=== PATIENT | male | born 1975 | race Caucasian/White ===

== ENCOUNTER 2017-12-28 19:40 | Observation (INO) | payer OTHER, SELFPAY ==
[2017-12-28 19:40] VITALS: BP 149/55; PULSE 105; RESP 16; TEMP 38.2; O2SAT 100; BMI 39.0
--- NOTE | 2017-12-28 19:58 | CT_ITS ---
STUDY: CT ABDOMEN AND PELVIS WITH CONTRAST REASON FOR EXAM: Male, 42 years old. Right lower quadrant pain. RADIATION DOSAGE (If Supplied By Facility): CTDIvol = ( 17.03 ) mGy, DLP = ( 1419.88 ) mGycm TECHNIQUE: Transaxial images were obtained from the dome of the diaphragm to the symphysis pubis without oral contrast. 100 ml of Isovue 300 contrast was administered. Sagittal and coronal images were reconstructed. Individualized dose optimization techniques were used for this CT. COMPARISON: None. FINDINGS: There is minimal atelectasis within the lower lobes. The visualized portions of the heart are within normal limits. Normal liver. Normal gallbladder and extrahepatic biliary system. Normal spleen. Normal pancreas. Normal bilateral adrenal glands. Normal right kidney. Normal left kidney. Normal visualized stomach. Normal small intestine. Normal colon. There is a tubular, thick-walled appendix (>7mm), consistent with acute appendicitis. There are scattered peripheral calcifications of the abdominal aorta consistent with atherosclerosis. Normal inferior vena cava. Normal retroperitoneum. Normal urinary bladder. Normal abdominal wall. Normal osseous structures. CT/Abdomen/Pelvis W IV Cont ONLY IMPRESSION: Acute appendicitis. Electronically Signed: Poornima Smith MD at 20:59 EDT Tel , Service support ,
[2017-12-28] MEDS: Ketorolac 30 MG/ML Syringe IV (20:01)
[2017-12-28] MEDS: 0.9% Normal Saline 1,000 ML 1000 ML IV (20:01)
[2017-12-28] MEDS: Ondansetron 4 MG/2 ML Vial IV (20:03)
--- NOTE | 2017-12-28 20:05 | ED.DCSUM_ITS ---
- ER Visit Summary Date of Service: 12/28/17 Chief Complaint: Right lower quadrant abdominal pain History of Present Illness: The patient is a 42 M no prior abdominal surgery. Patient states since around 7 AM this morning he has had right lower quadrant abdominal pain and is progressively gotten worse. No vomiting. No diarrhea. No dysuria. No hematuria. No melena. He did develop worse pain and a fever tonight and left the football game to come to the ER to be evaluated. He denies any trauma. No prior history. Physical Examination: Well-appearing middle-age male. Vital signs stable he does have a low-grade temperature 100.2. He does not look septic or toxic. He is currently in no distress. H EENT exam unremarkable. Neck nontender. Lungs good auscultation bilaterally. Heart regular rhythm rate about 100 no murmur. Abdomen soft. Nondistended. Normal bowel sounds. The right upper left upper and left lower quadrants are unremarkable. He has obvious McBurney's point tenderness on the right. He does mildly guard. There is no rebound currently or rigidity. He also has a positive Rovsing sign with pushing on his left lower quadrant he has pain in the right. External exam is nontender. No masses or redness. Back there is no CVA tenderness. He is moving all 4 extremities. They are neurovascularly intact. He is awake and alert. Test Results: Count 13,000. Normal hemoglobin. Electrolytes unremarkable. Gap is 7. Creatinine 1.36. UA is pending. CT abdomen pelvis with IV contrast only read by the radiologist reviewed by me shows acute appendicitis. The appendix is enlarged and inflamed. Otherwise no acute abnormality. This is completely consistent with his history and exam. Emergency Department Course and Treatment: Patient's clinical exam is consistent with acute appendicitis. He will undergo a CAT scan of the abdomen and pelvis along with labs. He will receive IV Toradol and Zofran. Along with IV fluids. He may potentially have a morphine allergy from a prior surgery but at that time he received both the morphine and an antibiotic and more than likely it was a reaction to the antibiotic. Treatment Plan: I have already spoken with the surgeon material control analyst Dr. Gareth Guerra and he is coming to evaluate the patient for an acute appendectomy. He is calling in the surgical team. Patient will be started on IV Zosyn. Disposition: To the operating room for an appendectomy Impression: Acute abdominal pain secondary to acute appendicitis This note was generated with [employer] dictation software. It may contain incorrect words, spelling, and punctuation that were not noted in review of the chart prior to signing ED Disposition - Plan for ED Patient: Chief Complaint: Abd Pain Referrals: Lewis Cardona MD [Primary Care Provider] -
[2017-12-28 20:27] LABS: Absolute Lymphocyte Count 1.32 X10^3/ul (0.83-4.51); Absolute Neutrophil Count 10.8 X10^3/uL (2.0-7.7); Basophil# 0.02 X10^3/uL; Basophil% 0.2 % (0-1); Eosinophil# 0.08 X10^3/uL; Eosinophils% 0.6 % (0-5); Hematocrit 40.9 % (40-54); Hemoglobin 14.6 g/dl (13.0-16.5); Lymphocyte # 1.32 X10^3/ul (4.0); Lymphocyte % 10.1 % (19-41); Mean Corp Hgb Conc 35.7 g/gl (32-36); Mean Corpuscular Hgb 33.3 pg (27.0-32.0); Mean Corpuscular Volume 93.2 fL (80-94); Mean Platelet Vol. 8.6 fl (6.2-12.0); Monocyte% 6.1 % (0-10); Neutrophil # 10.77 X10^3/uL (2.7-7.7); Neutrophil % 82.8 % (47-70); Platelet Count 241 K/mm3 (150-450); RBC Distribution Width CV 12.9 % (11.6-14.6); RBC Distribution Width SD 43.2 fl (35.1-43.9); Red Blood Count 4.39 M/mm3 (4.6-6.2)
[2017-12-28 20:31] LABS: Anion Gap 7 (5-15); BUN 17 mg/dL (7-18); BUN/Creat Ratio 12.5 RATIO (10-20); Chloride 100 mmol/L (98-107); Creatinine, Serum 1.36 mg/dL (0.70-1.30); EST Glomerular Filtration Rate 61 mL/min (>60); Est Glom Filt Rate - Afr Amer 74 mL/min (>60); Estimated Creatinine Clearance 76.13 ml/min; Glucose 154 mg/dL (74-106); POSITIVE COUNT NO; POSITIVE DIFFERENTIAL NO; POSITIVE MORPHOLOGY NO; Potassium 4.1 mmol/L (3.5-5.1); Sodium Level 133 mmol/L (136-145)
[2017-12-28 21:10] VITALS: BP 161/85; PULSE 90; RESP 17; O2SAT 96
[2017-12-28 21:10] LABS: Bacteria 0 SEEN /hpf (None Seen); Mucous, Urine 0 SEEN /hpf (<or=2+); Red Blood Cells-Urine 0 SEEN /hpf (0-5); Squamous Epithelial Cells - UA 0 SEEN /hpf (0-5); White Blood Cells 0 SEEN /hpf (0-5)
[2017-12-28 21:11] VITALS: BP 161/85; PULSE 91; RESP 17; O2SAT 95; BMI 39.0
[2017-12-28 21:20] LABS: Color, Urine Yellow (Yellow); Glucose, Dipstick Normal (Normal); Ketone-Dipstick Negative (Negative); Leukocyte Esterase-Dipstick Negative /ul (Negative); Nitrite-Dipstick Negative (Negative); Occult Blood-Urine Negative /ul (Negative); Protein-Dipstick Negative (Negative); Urine Bilirubin Dipstick Negative (Negative); Urine Clarity Clear (Clear); Urine Urobilinogen Normal (Normal)
--- NOTE | 2017-12-28 21:21 | HP.PCM_ITS ---
History of Present Illness Date of Admission: 12/28/17 The patient is a 42 year old M who woke up this morning with abdominal pain. Pain localized to right lower quadrant. The patient presented with blood in the sigmoid had persistent pain. He presented to [facility] emergency department. He was noted elevated white blood cell count of 13,000. CT scan of the head and pelvis was obtained which demonstrated early appendicitis. I was contacted. Past Medical History Past Medical History (Chronic Problems): Chronic Problems Obesity grade 1 (Chronic) Dyslipidemia (Chronic) Hypertension (Chronic) Allergies cefazolin sodium [From Ancef] Allergy (Intermediate, Verified 02/18/16 09:49) Hives morphine Allergy (Intermediate, Verified 02/18/16 09:49) Hives Home Medications: Ambulatory Orders Medication Instructions Recorded Albuterol Inhaler [Ventolin Hfa] 2 puff INHALATION Q4H PRN PRN 10/29/14 Lisinopril [Zestril] 20 mg PO QHS 10/29/14 Lorazepam [Ativan] 0.5 mg PO DAILY PRN PRN 10/29/14 Paroxetine HCl [Paxil] 30 mg PO QHS 10/29/14 Ibuprofen 400 mg PO PRN PRN 12/28/17 Smoking Status: Never smoker - *Family History Paternal History Items: No pertinent history Review of Systems Constitutional: Denies: Chills, Fever, Weight Change HEENT: Denies: Head Aches, Sinus Congestion, Sinus Drainage Cardiovascular: Denies: Chest Pain, Palpitations Respiratory: Denies: Cough, Shortness of breath at rest, Sputum production Gastrointestinal: Denies: Abdominal Pain, Nausea, Vomiting Genitourinary: Denies: Dysuria Musculoskeletal: Denies: Joint Pain, Joint Tenderness Skin: Denies: Rash, Wounds Neurological: Denies: Numbness, Tingling, Focal weakness Psychiatric: Denies: Anxiety, Depression, Homicidal Ideations, Suicidal Ideations Hematologic/ Lymphatic: Denies: Easy Bruising, Easy Bleeding VTE Information - Inpt Only VTE Present on Admission: No VTE Mechan Device Prophylaxis: SCD's VTE Pharm Prophylaxis ordered?: No - Physical Exam General: Alert, Oriented x3, Cooperative HEENT: Atraumatic, PERRLA, EOMI, Normocephalic Neck: Supple, No JVD, Negative Carotid Bruits Lungs: Clear to auscultation, Normal air movement Cardiovascular: Regular rate, No murmurs Abdomen: Bowel Sounds Present, Soft, Tender - RLQ pain Extremities: No edema, Capillary Refill Less than 3 Seconds Skin: No rashes, No breakdown Musculoskeletal: No Tenderness to Palpation of Joints or Extremities Neurological: Cranial nerves II-XII grossly intact Psych/Mental Status: Normal Affect, Appropriate Vital Signs Temp Pulse Resp BP Pulse Ox 100.8 F H 91 17 161/85 H 95 12/28/17 19:40 12/28/17 21:11 12/28/17 21:11 12/28/17 21:11 12/28/17 21:11 Oxygen Delivery Method Room Air Weight: 127.006 kg Body Mass Index (BMI) 39.0 Laboratory Tests Past 24 Hrs 12/28/17 12/28/17 12/28/17 19:48 19:48 21:05 WBC 13.0 H RBC 4.39 L Hgb 14.6 Hct 40.9 MCV 93.2 MCH 33.3 H MCHC 35.7 RDW 12.9 RDW Differential 43.2 Plt Count 241 MPV 8.6 Immature Gran % (Auto) 0.200 Neut % (Auto) 82.8 H Lymph % (Auto) 10.1 L [place] % (Auto) 6.1 Eos % (Auto) 0.6 Baso % (Auto) 0.2 Absolute Neuts (auto) 10.8 H Absolute Lymphs (auto) 1.32 Total Counted Not Reportable Sodium 133 L Potassium 4.1 Chloride 100 Carbon Dioxide 26.0 Anion Gap 7 BUN 17 Creatinine 1.36 H Estim Creat Clear Calc 76.13 Est GFR (MDRD) Af Amer 74 Est GFR (MDRD) Non-Af 61 BUN/Creatinine Ratio 12.5 Glucose 154 H Calcium 9.0 Urine Color Pending Urine Clarity Pending Urine pH Pending Ur Specific [place] Pending Urine Protein Pending Urine Glucose (UA) Pending Urine Ketones Pending Urine Occult Blood Pending Urine Nitrite Pending Urine Bilirubin Pending Urine Urobilinogen Pending Ur Leukocyte Esterase Pending Urine RBC Pending Urine WBC Pending Ur Squamous Epith Cells Pending Urine Bacteria Pending Urine Mucus Pending Assessment/Plan All Active Problems Intractable low back pain (Acute) right lower quadrant bowel pain. CT scan consistent with appendicitis. I plan to perform a laparoscopic appendectomy. The risks, benefits, possible complications, alternatives were discussed with the patient. The patient was taken to consents to the surgical procedure.
--- NOTE | 2017-12-28 22:15 | APP_PTH ---
PATIENT: ELLE VILLALPANDO LOC: MS3 U#:[id number] AGE/SX: 42/M ROOM: IL313 RE12/28/[address]: Dr. Javi Guerra MD : 1975 BED: 1 DIS: 12/29/2017 SPEC #: [id number] RECD: 12/31/17 09:40 STATUS: LISBETH REQ #: [id number] FORTINO: 12/28/17 22:[address]: Javi Guerra DEPT: SURGICAL PATHOLOGY RECD BY: Ayden Nunez ENTERED: 12/31/17 10:31 SP TYPE: APPENDIX OTHR DR: Dr. Robert Cardona MD Tissues: Appendix, NOS Procedures: Surgery Specimen Level III HEADER OPERATION: Laparoscopic appendectomy PRE-OP DIAGNOSIS: Acute appendicitis TISSUE SUBMITTED: Appendix MICROSCOPIC DIAGNOSIS Appendix: Acute appendicitis and periappendicitis. SJ:vinicio 01/01/18 MICROSCOPIC DESCRIPTION Slides are reviewed. GROSS DESCRIPTION Received is one container labeled with the patient's name and designated appendix. The specimen consists of a C-shaped appendix measuring 9.9 cm in length and up to 1 cm in average diameter. The attached periappendiceal adipose tissue measures up to 2 cm in width. No obvious perforation is identified. The lumen contains fecal material. No fecalith is identified. Superintendent General sections are submitted in one cassette. / SJ:rg 12/31/17 TC:2 [facility]: [id number]
[2017-12-28] MEDS: Bupivacaine 0.5% PF 10 ML VIAL (22:50)
--- NOTE | 2017-12-28 23:22 | PCM.OPRPT ---
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 Sign in was performed verifying patient, site, procedure, position, and DVT prophylaxis with SCDs. Patient received 4.5 g Zosyn for presumed appendicitis. Following induction of general anesthetic. The patient?s abdomen was prepped and draped in the usual fashion. Timeout was performed verifying patient, site, position. Local anesthetic was injected below the umbilicus. Incision made and dissection carried down to the umbilical root fascia. 2 stay sutures were placed. Incision made in the fascia, the peritoneum entered under direct visualization. A 10 mm Hogue trocar was inserted and secured with the stay sutures. Pneumoperitoneum to 15 mmHg was insufflated. 2 5mm ports were placed in the standard position. Visual inspection revealed nonperforated but pale olmedo looking appendix. The mesoappendix was transected with a harmonic scalpel. The base the mesoappendix and the base of the appendix transected with the intestinal load Endo RAJ stapler at the base of the cecum. The appendix was placed in an Endobag and removed through the umbilical port site. An 0 PDS [id number] suture was placed around the umbilical port site defect. Pneumoperitoneum was reestablished. The appendiceal area was checked for hemostasis. 5mm ports were removed under direct visualization with no signs of bleeding. Pneumoperitoneum was released. The Hogue trocar was removed. The umbilical fascial suture was secured area did skin was closed with interrupted 4-0 Monocryl subcuticular sutures. Steri-Strips and bandages were applied. The patient was brought to recovery room in stable condition. - Admit VTE Documentation VTE Present on Admission: No VTE Mechan Device Prophylaxis: SCD's VTE Pharm Prophylaxis ordered?: No
[2017-12-28 23:39] VITALS: BP 130/87; BP 161/85; PULSE 97; RESP 20; TEMP 37.9; O2SAT 92
[2017-12-28 23:47] VITALS: BP 137/89; BP 161/85; PULSE 95; RESP 20; O2SAT 93
[2017-12-29] VITALS (8 sets, daily range): BP systolic 109–161; BP diastolic 72–86; PULSE 79–95; RESP 16–24; TEMP 36.4–37.8; O2SAT 92–97; BMI 39.3
[2017-12-29] MEDS: Lactated Ringers 1,000 ML 100 ML IV ×2 (00:52→11:49)
[2017-12-29] MEDS: HYDROmorphone 1 MG/ML Syringe IV ×2 (00:52→03:53)
[2017-12-29] MEDS: Piperacil/Tazobactam 3.375 GM/50 ML ML IV ×2 (06:32→13:55)
[2017-12-29] MEDS: 0.9% NaCl IVPB Med Flush (250 mL) 15 ML IV (06:32)
[2017-12-29] MEDS: oxyCODONE 5 MG Tablet PO ×3 (06:32→16:43)
[2017-12-29 07:15] LABS: Absolute Lymphocyte Count 2.09 X10^3/ul (0.83-4.51); Basophil# 0.01 X10^3/uL; Basophil% 0.1 % (0-1); Eosinophil# 0.07 X10^3/uL; Eosinophils% 0.6 % (0-5); Hemoglobin 13.9 g/dl (13.0-16.5); Lymphocyte # 2.09 X10^3/ul (4.0); Lymphocyte % 18.7 % (19-41); Mean Corp Hgb Conc 33.9 g/gl (32-36); Mean Corpuscular Hgb 32.2 pg (27.0-32.0); Mean Corpuscular Volume 94.9 fL (80-94); Mean Platelet Vol. 8.5 fl (6.2-12.0); Monocyte# 0.97 X10^3/uL; Monocyte% 8.7 % (0-10); Neutrophil # 8.02 X10^3/uL (2.7-7.7); Neutrophil % 71.7 % (47-70); Platelet Count 211 K/mm3 (150-450); RBC Distribution Width CV 13.3 % (11.6-14.6); RBC Distribution Width SD 45.8 fl (35.1-43.9); Red Blood Count 4.32 M/mm3 (4.6-6.2); White Blood Count 11.2 K/mm3 (4.4-11.0)
[2017-12-29 07:24] LABS: POSITIVE COUNT NO; POSITIVE DIFFERENTIAL NO; POSITIVE MORPHOLOGY NO
[2017-12-29 07:39] LABS: Anion Gap 9 (5-15); BUN 16 mg/dL (7-18); BUN/Creat Ratio 12.4 RATIO (10-20); Calcium,Total 8.6 mg/dL (8.5-10.1); Chloride 103 mmol/L (98-107); Creatinine, Serum 1.29 mg/dL (0.70-1.30); EST Glomerular Filtration Rate 65 mL/min (>60); Est Glom Filt Rate - Afr Amer 79 mL/min (>60); Estimated Creatinine Clearance 80.26 ml/min; Glucose 99 mg/dL (74-106); Potassium 4.3 mmol/L (3.5-5.1); Sodium Level 139 mmol/L (136-145)
--- NOTE | 2017-12-29 08:54 | DCINST_ITS ---
Discharge Diet: Light diet - advance as tolerated Discharge Activity: May Not Drive - for 3-5 days or while taking narcotic pain meds. May shower in (days): 1 Suture Line Care: Avoid Pulling/Pushing, Avoid Pinching/Bending Additional Dressing/Incision Instructions:: Keep dressing clean and dry. Change or remove dressing in 2 days. Leave steri strips for 1 week. May protect with a gauze bandaid. Medications to take at Discharge Albuterol Inhaler [Ventolin Hfa] 2 puff INHALATION Q4H PRN PRN 10/29/14 Lisinopril [Zestril] 20 mg PO QHS 10/29/14 Lorazepam [Ativan] 0.5 mg PO DAILY PRN PRN 10/29/14 Paroxetine HCl [Paxil] 30 mg PO QHS 10/29/14 Ibuprofen 400 mg PO PRN PRN 12/28/17 Ibuprofen [Motrin] 400 mg PO Q4H PRN PRN tablet 12/29/17 Oxycodone [Oxyir] 5 mg PO Q4H PRN PRN 7 Days #16 tab 12/29/17 Allergies/Adverse Reactions: Allergies cefazolin sodium [From Ancef] Allergy (Intermediate, Verified 02/18/16 09:49) Hives morphine Allergy (Intermediate, Verified 02/18/16 09:49) Hives The following prescriptions were given: Oxycodone [Oxyir] 5 mg PO Q4H PRN PRN 7 Days #16 tab PRN Reason: Severe Pain (6-10/10) Primary Care Physician: Lewis Cardona MD [Primary Care Provider] - Test Results: Test results from this visit will be discussed in further detail at your follow- up appointment, if applicable. Please Follow Up With: Javi Guerra MD - [phone] When: Call to make a follow up appointment in 1 week.
[2017-12-29] MEDS: Ibuprofen 400 MG Tablet PO (09:02)
[2017-12-29] MEDS: BENZOCAINE/MENTHOL 1 LOZENGE MUCOUS MEM ×2 (09:25→12:02)
--- NOTE | 2017-12-29 10:35 | PCM.DC.SUM ---
Discharge Date and Diagnosis Date of Admission: 12/28/17 Date of Discharge: 12/29/17 - Primary Discharge Diagnosis appendicitis - Secondary Discharge Diagnosis Chronic Problems Obesity grade 1 (Chronic) Dyslipidemia (Chronic) Hypertension (Chronic) Hospital Course and Treatment Operations: appendectomy Summary of Care Provided: The patient is a 42 year old M with a one-day history of abdominal pain localized to right lower quadrant consistent with appendicitis. The patient was taken the operating suite, underwent laparoscopic appendectomy for nonperforated appendicitis. The patient was doing well on postoperative day one was able to be discharged home Discharge Diet: Light diet - advance as tolerated Discharge Activity: May Not Drive - for 3-5 days or while taking narcotic pain meds. May shower in (days): 1 Suture Line Care: Avoid Pulling/Pushing, Avoid Pinching/Bending Additional Dressing/Incision Instructions:: Keep dressing clean and dry. Change or remove dressing in 2 days. Leave steri strips for 1 week. May protect with a gauze bandaid. Home Medications: Medications to take at Discharge Albuterol Inhaler [Ventolin Hfa] 2 puff INHALATION Q4H PRN PRN 10/29/14 Lisinopril [Zestril] 20 mg PO QHS 10/29/14 Lorazepam [Ativan] 0.5 mg PO DAILY PRN PRN 10/29/14 Paroxetine HCl [Paxil] 30 mg PO QHS 10/29/14 Ibuprofen 400 mg PO PRN PRN 12/28/17 Ibuprofen [Motrin] 400 mg PO Q4H PRN PRN tablet 12/29/17 Oxycodone [Oxyir] 5 mg PO Q4H PRN PRN 7 Days #16 tab 12/29/17 Following Prescrptions Were Given to Patient: Oxycodone [Oxyir] 5 mg PO Q4H PRN PRN 7 Days #16 tab PRN Reason: Severe Pain (6-10/) Primary Care Physician: Lewis Cardona MD [Primary Care Provider] - Please Follow Up With: Javi Guerra MD - [phone] When: Call to make a follow up appointment in 1 week. Medical Necessity - Tobacco Use Smoking Status: Never smoker Meaningful Use Info Meaningful Use Diagnoses (Choose all that apply): None applicable
--- NOTE | 2017-12-29 11:51 | NURSING ---
Dr Markham paged for the second time to report bladder scan showed 703 and pt is uncomfortable.
== END 2017-12-29 17:44 | disposition home or self-care (01) ==
LOC: ED 20:47 → SDC 21:36 → MS3 21:39 → SDC 23:45
PROVIDERS: Admitting Provider Surgery; Emergency Provider Emergency Medicine; Family Provider Family Medicine; PCP Family Medicine; Visit Provider Surgery
PROC: 0DTJ4ZZ Resection of Appendix, Percutaneous Endoscopic Approach (ICD-10-PCS; CPT 44970; principal; 2017-12-28 22:15)
DX: K35.80 Unspecified acute appendicitis (principal); F41.9 Anxiety disorder, unspecified; Z79.899 Other long term (current) drug therapy; I10 Essential (primary) hypertension; E66.9 Obesity, unspecified; Z68.39 Body mass index [BMI] 39.0-39.9, adult; Z71.3 Dietary counseling and surveillance; E78.5 Hyperlipidemia, unspecified
CPT/HCPCS: 00840; 44970; 36415; 74177; 80048; 81001; 85025; 88304; 96361; 96365; 96366; 96375; 96376; 99218; 99283; J7030; J7050; J7120; Q9967; A4216; G0378; J2405

== ENCOUNTER → 2018-05-09 14:31 | Outpatient (CLI) | payer OTHER, SELFPAY ==
[2017-12-29 00:23] VITALS: BMI 39.3
== END ==
LOC: LABSPEC 14:33
PROVIDERS: Family Provider Family Medicine; PCP Family Medicine; Referring Provider Family Medicine; Visit Provider Family Medicine
DX: R35.0 Frequency of micturition (principal)
CPT/HCPCS: 87086; 87088

== ENCOUNTER → 2018-05-10 07:17 | Outpatient (CLI) | payer OTHER, SELFPAY ==
[2018-05-10 10:45] LABS: ALB/GLOB Ratio 1.3 RATIO (0.9-2.4); AST(SGOT) 22 U/L (15-37); Alanine Aminotransfer ALT/SGPT 47 U/L (16-61); Albumin, Serum 4.3 g/dL (3.2-5.0); Alkaline Phosphatase 79 U/L (45-117); Anion Gap 13 (5-15); BUN 19 mg/dL (7-18); BUN/Creat Ratio 17.4 RATIO (10-20); Chloride 103 mmol/L (98-107); Cholesterol 225 mg/dL (200); Creatinine, Serum 1.09 mg/dL (0.70-1.30); EST Glomerular Filtration Rate 79 mL/min (>60); Est Glom Filt Rate - Afr Amer 96 mL/min (>60); Globulin 3.4 g/dL (2.2-4.2); Glucose 83 mg/dL (74-106); High Density Lipoprotein 28 mg/dL; PSA,Total - Annual Screen 2.46 ng/mL (0.00-4.00); Potassium 4.1 mmol/L (3.5-5.1); Protein, Total 7.7 g/dL (6.4-8.2); Sodium Level 141 mmol/L (136-145); Thyroid Stim Hormone (TSH) 1.43 uIU/mL (0.358-3.74); Triglycerides 385 mg/dL; Very Low Density Lipoprotein 77 mg/dL (5-40)
== END ==
LOC: MTLAB 07:18
PROVIDERS: Family Provider Family Medicine; PCP Family Medicine; Referring Provider Family Medicine; Visit Provider Family Medicine
DX: I10 Essential (primary) hypertension (principal); R35.0 Frequency of micturition; E66.9 Obesity, unspecified
CPT/HCPCS: 36415; 80053; 80061; 82533; 84153; 84443; G0103

== ENCOUNTER → 2019-03-24 17:01 | Outpatient (CLI) | payer OTHER, SELFPAY ==
[2017-12-29 00:23] VITALS: BMI 39.3
[2019-03-24 18:13] LABS: Anion Gap 7 (5-15); BUN 17 mg/dL (7-18); BUN/Creat Ratio 12.8 RATIO (10-20); Calcium,Total 9.3 mg/dL (8.5-10.1); Chloride 108 mmol/L (98-107); Cholesterol 214 mg/dL (200); Creatinine, Serum 1.33 mg/dL (0.70-1.30); EST Glomerular Filtration Rate 63 mL/min (>60); Est Glom Filt Rate - Afr Amer 76 mL/min (>60); Glucose 85 mg/dL (74-106); High Density Lipoprotein 22 mg/dL; Potassium 3.8 mmol/L (3.5-5.1); Sodium Level 138 mmol/L (136-145); Triglycerides 540 mg/dL
== END ==
LOC: MFPLAB 17:02
PROVIDERS: Family Provider Family Medicine; PCP Family Medicine; Referring Provider Family Medicine; Visit Provider Family Medicine
DX: I10 Essential (primary) hypertension (principal)
CPT/HCPCS: 36415; 80048; 80061

== ENCOUNTER → 2020-05-28 07:36 | Outpatient (CLI) | payer OTHER, SELFPAY ==
[2020-05-28 10:55] LABS: ALB/GLOB Ratio 1.3 RATIO (0.9-2.4); AST(SGOT) 24 U/L (15-37); Alanine Aminotransfer ALT/SGPT 44 U/L (16-61); Albumin, Serum 4.1 g/dL (3.2-5.0); Alkaline Phosphatase 82 U/L (45-117); Anion Gap 10 (5-15); BUN 18 mg/dL (7-18); BUN/Creat Ratio 16.5 RATIO (10-20); Calcium,Total 9.1 mg/dL (8.5-10.1); Chloride 103 mmol/L (98-107); Cholesterol 193 mg/dL (200); Creatinine, Serum 1.09 mg/dL (0.70-1.30); EST Glomerular Filtration Rate 78 mL/min (>60); Est Glom Filt Rate - Afr Amer 95 mL/min (>60); Globulin 3.2 g/dL (2.2-4.2); Glucose 97 mg/dL (74-106); High Density Lipoprotein 28 mg/dL; Potassium 4.1 mmol/L (3.5-5.1); Protein, Total 7.3 g/dL (6.4-8.2); Sodium Level 137 mmol/L (136-145); Triglycerides 280 mg/dL; Very Low Density Lipoprotein 56 mg/dL (5-40)
== END ==
LOC: MTLAB 07:37
PROVIDERS: PCP Family Medicine; Referring Provider Family Medicine; Visit Provider Family Medicine
DX: I10 Essential (primary) hypertension (principal); E78.5 Hyperlipidemia, unspecified
CPT/HCPCS: 36415; 80053; 80061

== ENCOUNTER → 2021-02-18 07:03 | Outpatient (CLI) | payer OTHER, SELFPAY ==
[2021-02-18 10:40] LABS: ALB/GLOB Ratio 0.9 RATIO (0.9-2.4); AST(SGOT) 19 U/L (15-37); Alanine Aminotransfer ALT/SGPT 45 U/L (16-61); Albumin, Serum 3.6 g/dL (3.2-5.0); Alkaline Phosphatase 81 U/L (45-117); Anion Gap 5 (5-15); BUN 19 mg/dL (7-18); BUN/Creat Ratio 17.3 RATIO (10-20); Calcium,Total 9.1 mg/dL (8.5-10.1); Chloride 105 mmol/L (98-107); Cholesterol 195 mg/dL (200); EST Glomerular Filtration Rate 77 mL/min (>60); Est Glom Filt Rate - Afr Amer 93 mL/min (>60); Globulin 3.8 g/dL (2.2-4.2); Glucose 95 mg/dL (74-106); High Density Lipoprotein 28 mg/dL; Potassium 4.1 mmol/L (3.5-5.1); Protein, Total 7.4 g/dL (6.4-8.2); Sodium Level 137 mmol/L (136-145); Thyroid Stim Hormone (TSH) 1.58 uIU/mL (0.358-3.74); Triglycerides 288 mg/dL; Very Low Density Lipoprotein 58 mg/dL (5-40)
== END ==
LOC: MTLAB 07:04
PROVIDERS: PCP Family Medicine; Visit Provider Family Medicine
DX: I10 Essential (primary) hypertension (principal); E66.9 Obesity, unspecified
CPT/HCPCS: 36415; 80053; 80061; 84403; 84443

== ENCOUNTER → 2021-12-12 | Outpatient (CLI) | payer OTHER, SELFPAY ==
[2021-12-12 10:55] LABS: ALB/GLOB Ratio 1.1 RATIO (0.9-2.4); AST(SGOT) 24 U/L (15-37); Alanine Aminotransfer ALT/SGPT 48 U/L (16-61); Alkaline Phosphatase 80 U/L (45-117); Anion Gap 9 (5-15); BUN 19 mg/dL (7-18); BUN/Creat Ratio 17.1 RATIO (10-20); Calcium,Total 9.7 mg/dL (8.5-10.1); Chloride 103 mmol/L (98-107); Cholesterol 208 mg/dL (200); Creatinine, Serum 1.11 mg/dL (0.70-1.30); EST Glomerular Filtration Rate 76 mL/min (>60); Est Glom Filt Rate - Afr Amer 92 mL/min (>60); Globulin 3.8 g/dL (2.2-4.2); Glucose 103 mg/dL (74-106); High Density Lipoprotein 29 mg/dL; Protein, Total 7.8 g/dL (6.4-8.2); Sodium Level 136 mmol/L (136-145); Triglycerides 310 mg/dL; Very Low Density Lipoprotein 62 mg/dL (5-40)
== END | disposition home or self-care (01) ==
LOC: MFPLAB 08:49
PROVIDERS: PCP Family Medicine; Visit Provider Family Medicine
DX: I10 Essential (primary) hypertension (principal)
CPT/HCPCS: 36415; 80053; 80061

== ENCOUNTER → 2022-06-12 | Outpatient (CLI) | payer OTHER, SELFPAY ==
[2022-06-12 10:05] LABS: AST(SGOT) 26 U/L (15-37); Alanine Aminotransfer ALT/SGPT 48 U/L (16-61); Albumin, Serum 3.9 g/dL (3.2-5.0); Alkaline Phosphatase 73 U/L (45-117); Anion Gap 8 (5-15); BUN 23 mg/dL (7-18); Calcium,Total 9.5 mg/dL (8.5-10.1); Chloride 105 mmol/L (98-107); Cholesterol 226 mg/dL (200); Creatinine, Serum 1.15 mg/dL (0.70-1.30); EST Glomerular Filtration Rate 73 mL/min (>60); Est Glom Filt Rate - Afr Amer 88 mL/min (>60); Globulin 3.9 g/dL (2.2-4.2); Glucose 109 mg/dL (74-106); High Density Lipoprotein 34 mg/dL; Protein, Total 7.8 g/dL (6.4-8.2); Sodium Level 136 mmol/L (136-145); Triglycerides 277 mg/dL; Very Low Density Lipoprotein 55 mg/dL (5-40)
== END | disposition home or self-care (01) ==
LOC: LABSPEC 08:47
PROVIDERS: PCP Family Medicine; Visit Provider Family Medicine
DX: I10 Essential (primary) hypertension (principal)
CPT/HCPCS: 80053; 80061

== ENCOUNTER 2022-09-03 10:01 | Emergency (ER) | payer OTHER, SELFPAY ==
[2022-09-03 10:02] VITALS: BP 169/97; PULSE 73; RESP 18; TEMP 36.7; O2SAT 96; BMI 46.9
--- NOTE | 2022-09-03 10:24 | RAD_ITS ---
EXAM: XR CHEST, 2 VIEWS CLINICAL INDICATION: Shortness of Breath TECHNIQUE: Frontal and lateral views of the chest. COMPARISON: No relevant prior studies available. FINDINGS: LUNGS AND PLEURAL SPACES: Normal. No consolidation or edema. No pneumothorax. No effusion. HEART: Normal heart size. MEDIASTINUM: No mediastinal or hilar mass. BONES/JOINTS: No acute abnormality. RAD/Chest PA and Lateral IMPRESSION: No acute cardiopulmonary disease. Electronically Signed: Suleiman Weaver MD at 11:01 EDT ,
--- NOTE | 2022-09-03 10:25 | ED.VIS.DYS ---
HPI History of Present Illness Chief Complaint: Shortness of Breath Narrative Narrative: 46-year-old male past medical history of asthma has been using his inhalers all week, with increasing shortness of breath. He states 2 days ago he was unable to sleep well because he felt very short of breath. He denies any nausea or vomiting, no chest pain or diaphoresis. He states his symptoms began as a runny nose and occasional cough, but felt it go into his chest. He has had pneumonia in the past, and bronchitis. Usually his inhalers work. He states with his asthma he was diagnosed in elementary school but was never hospitalized. He was never intubated, and cannot recall the last time that he had a steroid burst. He denies any leg swelling, no other symptoms. PFSH PFSH Home Medications lisinopril 20 mg tablet 20 mg PO QHS blood pressure 10/29/14 [History Last Taken 12/27/17 22:00 20 mg] lorazepam 0.5 mg tablet 0.5 mg PO DAILY PRN PRN Anxiety 10/29/14 [History Last Taken 02/17/16] paroxetine HCl 30 mg tablet (Paxil) 30 mg PO QHS depression 10/29/14 [History Last Taken 12/27/17 22:00] albuterol sulfate 90 mcg/actuation aerosol inhaler (ProAir HFA) 1 inh inhalation ONCE 05/16/22 [History Last Taken Unknown] azithromycin 250 mg tablet See Rx Instructions PO .COMPLEX #6 tabs 05/16/22 [Rx Last Taken Unknown] hydrochlorothiazide 25 mg tablet 12.5 mg PO DAILY 05/16/22 [History Last Taken Unknown] albuterol sulfate 90 mcg/actuation aerosol inhaler (Ventolin HFA) 2 puff inhalation Q4H PRN PRN Wheezing #1 ea 09/03/22 [Rx Last Taken Unknown] prednisone 20 mg tablet 40 mg PO DAILY #14 tabs 09/03/22 [Rx Last Taken Unknown] Allergy/AdvReac Type Severity Reaction Status Date / Time cefazolin sodium [From [facility]] Allergy Intermediate Hives Verified 05/16/22 13:47 morphine Allergy Intermediate Hives Verified 05/16/22 13:47 Family History Other Hypertension Social History Smoking Status: Never smoker ROS ROS ED ROS Narrative Constitutional: No fever, no chills. HEENT: No sore throat. No neck pain. No loss of vision. Positive rhinorrhea. Cardiovascular: No chest pain. No palpitations. No pedal edema. Respiratory: Occasional cough productive of yellowish sputum, positive shortness of breath. Abdominal: No abdominal pain. No nausea. No vomiting. Genitourinary: No dysuria. No hematuria. Musculoskeletal: No myalgias. No arthralgias. Neurologic: No headaches. No dizziness. No lightheadedness. Skin: No rash. No change in color. Psychiatric: No depression. No anxiety. EXAM Physical Exam Narrative Exam Narrative: Afebrile. Vital signs noted. HEENT: Normocephalic. Atraumatic. PERRL, EOMI. Neck soft and supple. No point tenderness or step off. Cardiovascular: Regular rate and rhythm. No murmurs, rubs, or gallops appreciated. Respiratory: No tachypnea. Occasional expiratory wheeze left greater than right. Gastrointestinal: Abdomen soft, nontender, with normoactive bowel sounds. No rebound or guarding. Neurological: Awake. Alert. Nonfocal, nonlateralizing. Skin: No rash. Normal color. No pallor. Musculoskeletal: No pedal edema. Full range of motion extremities. Const Vital Signs: 09/03/22 10:02 09/03/22 10:34 09/03/22 10:25 Temperature 98.1 F Temperature Source Temporal Pulse Rate 73 Respiratory Rate 18 Respiratory Effort Short of Breath Respiratory Depth Normal Respiratory Pattern Normal Normal Blood Pressure 169/97 H Blood Pressure Mean 121 Pulse Ox 96 Oxygen Delivery Method Room Air Room Air MDM MDM MDM Narrative Medical decision making narrative: Concern is for bronchitis versus pneumonia which would require antibiotics, versus asthma exacerbation. His pulse ox is 96% on room air and he is not currently tachypneic. He is not tachycardic. I have low concern for pulmonary embolism as he does not have history that suggest this. He will be given a DuoNeb aerosolized treatment and a loading dose of prednisone 60 mg orally. Chest x-ray will be obtained in 2 views. I reviewed his chest x-ray and interpreted it individually. I see no evidence of pneumonia or pneumothorax. I reviewed the radiology report which confirms my independent interpretation. I do not feel antibiotics are indicated. Upon repeat examination at approximately 1115, his lungs are clear to auscultation bilaterally and he feels improved. At this point in time, I feel he is having more of an asthma exacerbation with acute bronchitis. He will be given a prescription for steroid burst to start tomorrow for the next week, and a prescription for new inhaler. I do not feel that he requires observation. He is comfortable going home. Return instructions to the emergency department were reviewed. Disposition is discharged home in stable condition. History & Record Review Discussion w/independent historian: Patient and Significant other Additional record(s) reviewed:: Prior ED visit Radiography Diagnostic Testing: Clinical Impression(s) from Imaging Studies Chest X-Ray 09/03/22 10:24 IMPRESSION: No acute cardiopulmonary disease. Electronically Signed: Suleiman Weaver MD at 11:01 EDT , Discharge Plan Triage Chief Complaint: Shortness of Breath ED Provider: Enoch King Dx/Rx/DC Orders Clinical Impression: Asthma exacerbation, Acute bronchitis Instructions: ED Asthma, Acute (Adult), ED Bronchitis with Wheezing (Adult) Prescriptions: New prednisone 20 mg tablet 40 mg PO DAILY Qty: 14 0RF albuterol sulfate [Ventolin HFA] 90 mcg/actuation HFA aerosol inhaler 2 puff inhalation Q4H PRN PRN (Reason: Wheezing) Qty: 1 0RF No Action albuterol sulfate [ProAir HFA] 90 mcg/actuation HFA aerosol inhaler 1 inh inhalation ONCE hydrochlorothiazide 25 mg tablet 12.5 mg PO DAILY Label Comments: TAKE 1 TABLET BY MOUTH ONCE DAILY azithromycin 250 mg tablet See Rx Instructions PO .COMPLEX Qty: 6 0RF Rx Instructions: take 500 mg today (day 1), then 250 mg for 4 days (days 2-5) PO lisinopril 20 MG tablet 20 mg PO QHS Label Comments: BP lorazepam 0.5 MG tablet 0.5 mg PO DAILY PRN PRN (Reason: Anxiety) paroxetine HCl [Paxil] 30 MG tablet 30 mg PO QHS Label Comments: ANXIETY Primary Care Provider: Lewis Cardona Referrals: Lewis Cardona MD [Primary Care Provider] - 3-5 Days if not improving Activity Restrictions/Additional Instructions: Start your steroid burst tomorrow as you have already received a loading dose here in the emergency department on 09/03/2022. Use your inhaler 2 puffs inhaled every 4-6 hours especially over the next few days. Disposition Disposition: Home, Self Care
[2022-09-03] MEDS: Ipratropium/Albuterol Sulfate 3 ML AMPUL.NEB INHALATION (10:33)
[2022-09-03 11:01] VITALS: RESP 18
[2022-09-03] MEDS: predniSONE 20 MG Tablet 60 MG PO (11:28)
== END 2022-09-03 11:32 | disposition home or self-care (01) ==
PROVIDERS: Emergency Provider Emergency Medicine; PCP Family Medicine; Visit Provider Emergency Medicine
DX: J20.9 Acute bronchitis, unspecified (principal); J45.901 Unspecified asthma with (acute) exacerbation; Z79.899 Other long term (current) drug therapy
CPT/HCPCS: 71046; 94640; 99283

== ENCOUNTER → 2023-06-04 | Outpatient (CLI) | payer OTHER, SELFPAY ==
--- NOTE | 2023-06-04 15:00 | MRI_ITS ---
STUDY: MRI RIGHT SHOULDER REASON FOR EXAM: Male, 47 years old. Pain ongoing, failed injection. TECHNIQUE: Standardized fat and water weighted pulse sequences were obtained in all 3 orthogonal planes. COMPARISON: Right shoulder radiographs dated 04/12/2023. FINDINGS: There is mild supraspinatus, infraspinatus, and subscapularis tendinosis without a full-thickness tear. Normal teres minor tendon. Normal supraspinatus muscle. Normal infraspinatus muscle. Normal subscapularis muscle. Normal teres minor muscle. Intact glenohumeral articulation. Normal humeral head and visualized proximal humerus. Normal biceps labral complex. Normal intracapsular long biceps tendon. Normal rotator interval. There is a tear of the posterior glenoid labrum, with an adjacent multiseptated paralabral cyst (axial PD series 3 images 13-20). There is mild hypertrophic acromioclavicular arthrosis, with inferior osteophyte formation, with mild effacement of the supraspinatus myotendinous junction (coronal T2 series 8 image 10). There is an os acromiale. There is a Type II acromial morphology (curved), with a neutral orientation. There is no subacromial-subdeltoid bursal fluid. Normal visualized coracohumeral and coracoacromial ligaments. Normal quadrilateral space. Normal axillary space. Normal deltoid muscle. Normal trapezius muscle. MRI/Upper Ext Joint Only(Routine) IMPRESSION: Tear of the posterior glenoid labrum, with an adjacent multiseptated paralabral cyst. Mild supraspinatus, infraspinatus, and subscapularis tendinosis without a full-thickness rotator cuff tear. Mild hypertrophic acromioclavicular arthrosis, with inferior osteophyte formation, with mild effacement of the supraspinatus myotendinous junction. Os acromiale. Electronically Signed: Nasim Nevarez MD at 8:48 EST ,
== END | disposition home or self-care (01) ==
LOC: MRI 14:54
PROVIDERS: PCP Family Medicine; Referring Provider Orthopaedic Surgery Sports Medicine; Visit Provider Orthopaedic Surgery Sports Medicine
DX: M25.511 Pain in right shoulder (principal)
CPT/HCPCS: 73221

== ENCOUNTER 2023-08-09 07:00 | Outpatient (RCR) | payer OTHER, SELFPAY ==
--- NOTE | 2023-06-25 08:02 | HP.PTEVAL_ITS ---
Patient's Visit Information Visit Information Visit Information: ELLE VILLALPANDO is a 47 year old M referred to Physical Therapy by REILLY Martinez with a diagnosis of Right Shoulder Impingment. Date of Evaluation: 06/25/23 Physical Therapist: Andree Loyola DPT Visit Plan Frequency: 2x /Week Duration: 4 Weeks Plan: Impingement of the Right Shoulder- increased pain with ex over 90 degrees. Focus on Scapular Strength/Stabilization. HEP Given IE: Postural Education, Mid Row, LAE and Bilateral ER Subjective Subjective: Right shoulder pain has been bothered him on/off for a few years- around [place] sharp pains-insidious onset. 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 He is left handed but he uses his right hand just as much. The pain is located inside the joint he can't really touch it its more inside. Worst in the last 48 hours: 710 Agg: anything over 90 degrees or side to side. Best: 2/10 Eases: keeping it below 90 degrees, nothing really helps. He is taking Meloxicam and Tylenol. The pain does radiate down to the elbow depending on how much he does. Feels like the elbow is in a vice. No radiating pain into the neck. No N/T in the hand. No PARKER, blurred vision or dizziness. Describes the pain as sharp and shooting when it goes above 90 degrees and more dull and achy when he is just sitting. Sleep is disturbed- hard to get comfortable and will wake him up- more comfortable if its moving. Typically a side sleeper mostly left. He is pretty active throughout the day. He has had an MRI and an x-ray. MRI had a mild tear of the labrum, small cyst and calcified tendonitis of the RTC. He did have a cortisone injection in the beginning of April did not really help and only lasted about a week with the small amount that it did help. He feels that the shoulder is just staying the same. PMHx: HTN, asthma. Meds: hydrochlorothise, lisinopril, paroxetine, Meloxicam Objective Objective: Posture: forward head, rounded shoulder and increased kyphosis- pt can correct with verbal and tactile cues but is unable to maintain Gait: no deviation noted- good arm swing and trunk rotation Palpation: not tender to touch ROM: cervical: WNL, hand/wrist/elbow: WNL, Shoulder: Flexion: pain above 90 degrees, Abd: pain above 90 degrees, IR: pain when he moves his hand past his side, ER: WNL, Extn: pain past neutral. Strength: Resolution Agent: Left: 100 Right: 80 Elbow: Flexion: 4+/5 with discomfort Extn: 5/5 no pain, Shoulder: Extn: 4/5 discomfort, Flexion: 4/5 discomfort, IR:4-/5 painful, ER: 4+/5 no discomfort, abd: 4-/5 painful. Special Tests R Shoulder Lift Off Test - Subscapular Tear: Positive R Shoulder Drop Sign - IS Test: Positive R Shoulder Empty Can - SS: Positive R Shoulder Belly Press - SupScap: Positive R Shoulder Neer - Impingement: Positive R Shoulder [place] Kilo - Impingement: Positive R Shoulder Biceps Load Test - Labrum: Positive Balance/Special Test Scores Quick DASH Score: 22.7250 Goals Goal 1:: Patient will report participation in home exercise program activities a minimum of 5 days per week, as adjunct to skilled physical therapy intervention in preparation for independent home management upon discharge. Goal Time Frame: 4-6 Weeks Goal 2:: Patient will report an decrease 14 points on the Quick DASH to show minimal clinical significant difference on patients functional outcome measure. Goal Time Frame: 4-6 Weeks Goal 3:: Patient will maintain proper posture t/o tx session to demo increased scap s/s Goal Time Frame: 4-6 Weeks Goal 4:: Patient will demo full AROM without pain in the right shoulder Goal Time Frame: 4-6 Weeks Goal 5:: Patient will report 80% improvement Goal Time Frame: 4-6 Weeks Rehabilitation Potential Physical Therapy Diagnosis: Patient presents with pain free shoulder ROM, UE and scapular strength/stabilization, scapular insufficiency, muscular endurance leading to poor posture and increased pain with ADL's/work related tasks. Rehabilitation Potential: Good Anticipated Interventions Therapeutic Exercise to Include: Strength training, Endurance training, Agility training, Body mechanics, Postural training, Flexibilty training, Gait and locomotor training, Neuromotor development, Passive ROM, Active ROM, Dynamic Lumbar Stabilization and Scapular Strength/Stabilization For the Purpose of:: To improve muscle performance and motor function TENS: Yes Cryotherapy (ice pack, ice massage): Yes Thermo therapy (hot pack): Yes Ultrasound (thermal/non thermal): Yes Text: Thank you for the opportunity to evaluate your patient. For Medicare and Medicare HMO plans, please review the plan of care and approve it. It will need to be FAXED BACK to us at [phone] for Medicare purposes. For Medicare only, by signing this I certify the plan of care. Please let me know if there are questions or concerns regarding this plan of care. Physician Signature: Date:
--- NOTE | 2023-08-09 08:16 | HP.PTREVAL ---
Re-Evaluation Intro: REILLY Martinez, It has been my pleasure to treat ELLE VILLALPANDO over the last 11 visits for Right Shoulder Impingment. Please see the progress note below for an update on the physical therapy plan of care! Subjective Subjective: Pt. here today for his re assessment. He reports being ~40% better overall. He is still having R shoulder pain with OH movements, but reports being able to do anything below shoulder height. He did have a recent injection which has helped a bit. Objective Objective/Function: ROM: Pt. has full ROM of R shoulder with minimal increase in symptoms. CERVICAL ROM: no issues here either. I was unable to elicit shoulder pain with any cervical ROM. - spurlings, + HK on R side, - speeds, + empty can PALPATION: Pt. did not have any pain with palpation throughout R shoulder. MMT: symmetrical strength except shoulder flexion 17# on R side and 24# on L. Pt. reports pain with this testing. At this point in time I would like for him to progress slowly with ER loading to assist with remodeling his tissue. He is already doing scapular and periscapular strengthening. HE would like to continue on his own at this point in time. He is to add in ER strengthening in several positions. He is to trial this on his own for 1 month leading up to seeing physician. I will leave the case open until then in case issues arise. Plan Plan Plan: Pt. to trial ER loading for the next month until seeing physician. If he is not back by then I will DC back to physician. Balance/Gait/Functional tests Balance/Special Test Scores Quick DASH Score: 18.1800 Goals Goals Goal 1:: Patient will report participation in home exercise program activities a minimum of 5 days per week, as adjunct to skilled physical therapy intervention in preparation for independent home management upon discharge. Goal Time Frame: 4-6 Weeks Goal Progress: Goal Met Goal 2:: Patient will report an decrease 14 points on the Quick DASH to show minimal clinical significant difference on patients functional outcome measure. Goal Time Frame: 4-6 Weeks Goal Progress: Progressing Goal 3:: Patient will maintain proper posture t/o tx session to demo increased scap s/s Goal Time Frame: 4-6 Weeks Goal 4:: Patient will demo full AROM without pain in the right shoulder Goal Time Frame: 4-6 Weeks Goal Progress: Goal Met Goal 5:: Patient will report 80% improvement Goal Time Frame: 4-6 Weeks Goal Progress: Progressing Anticipated Interventions Anticipated Interventions Therapeutic Exercise to Include: Strength training, Endurance training, Agility training, Body mechanics, Postural training, Flexibilty training, Gait and locomotor training, Neuromotor development, Passive ROM, Active ROM, Dynamic Lumbar Stabilization and Scapular Strength/Stabilization For the Purpose of:: To improve muscle performance and motor function TENS: Yes Cryotherapy (ice pack, ice massage): Yes Thermo therapy (hot pack): Yes Ultrasound (thermal/non thermal): Yes Re-Evaluation Ending Re-evaluation ending: Please do not hesitate to contact me at [phone] by phone or if you have questions or concerns regarding this new plan of care! Sincerely, JD ColmenaresT
--- NOTE | 2023-10-31 08:59 | HP.PT.NRP ---
Patient Information Patient Information: ELLE VILLALPANDO was seen in my office for initial evaluation on 06/25/23. The following Plan of Care was established for this patient: POC Established Initial Frequency: 2x /Week Initial Duration: 4 Weeks Anticipated Interventions Therapeutic Exercise to Include: Strength training, Endurance training, Agility training, Body mechanics, Postural training, Flexibilty training, Gait and locomotor training, Neuromotor development, Passive ROM, Active ROM, Dynamic Lumbar Stabilization and Scapular Strength/Stabilization For the Purpose of:: To improve muscle performance and motor function TENS: Yes Cryotherapy (ice pack, ice massage): Yes Thermo therapy (hot pack): Yes Ultrasound (thermal/non thermal): Yes Last Seen Last Seen: This patient was last seen in our office . Pertinent comments regarding their Physical therapy will appear below: Patient has not returned to PT and is appropriate to be d/c and return to MD for further evaluation as per last visit At this point I will be discontinuing this patient from physical therapy. I would be happy to see this patient again in the future if found appropriate by the physician. Thank you! Andree Loyola DPT Balance/Gait/Functional tests Balance/Special Test Scores Quick DASH Score: 18.1800
== END 2023-08-09 19:00 | disposition home or self-care (01) ==
LOC: PT 07:00
PROVIDERS: PCP Family Medicine; Referring Provider Physician Assistant Surgical; Visit Provider Physician Assistant Surgical
DX: S43.431D Superior glenoid labrum lesion of right shoulder, subsequent encounter (principal); M25.511 Pain in right shoulder
CPT/HCPCS: 97110; 97161; 97162; 97530

== ENCOUNTER 2024-08-01 07:00 | Outpatient (RCR) | payer OTHER, SELFPAY ==
--- NOTE | 2024-03-28 08:55 | HP.PTEVAL_ITS ---
Patient's Visit Information Visit Information Visit Information: ELLE VILLALPANDO is a 48 year old M referred to Physical Therapy by Dr. Topher Mar MD with a diagnosis of Right Shoulder Arthroscopic Debridement and Subacromial Decompression..... Date of Evaluation: 03/28/24 Physical Therapist: Andree Loyola DPT Visit Plan Frequency: 2x /Week Duration: 4 Weeks Plan: Right Shoulder Arthroscopic Debridement and Subacromial Decompression and arthroscopic biceps tenodesis on 03/13/2024 Follow Protocol per MD script- Limited by biceps tenodesis- NO elbow strength training for 6 weeks. HEP Given IE: scapular retractions, elbow flexion/extn AROM, table walk away, pendulums Subjective Subjective: Right Shoulder Arthroscopic Debridement and Subacromial Decompression and arthroscopic biceps tenodesis on 03/13/2024. He reports that he has very little pain in the shoulder. He is not taking any medication at this point but does report itching. Worst: 5/10 Agg: movement. Best: 0/10 Ease: ice and medication if needed. Sling he is using as directed but does take off if he is sitting in his chair. He went back for post op- he did not have x- rays but they were happy with progress. He goes back next week. The pain is in the shoulder- no N/T in the hand. The pain is dull and achy. The patient is left hand dominate. Sleep: pt is back in bed- not too bad. 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 Objective Objective: Posture: forward head, rounded shoulders- could correct with verbal cue- but did not maintain Gait: no deviation noted- did have decrease arm swing with sling Observation: not done secondary to EMT-educated to call MD if any s/s of infection Palpation: tender along distal upper trap and bicipital groove ROM: Cervical: WNL finger dexterity: WNL, Elbow: WNL, Shoulder: PROM: Flexion: 120 degrees discomfort with descent, Abd: 90 degrees with pain end range, IR: to belly, ER: 35 degrees, Extn: 15 degrees. 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 scapular strength/stabilization: poor moderate winging Balance/Special Test Scores Quick DASH Score: 72.7250 Goals Goal 1:: Patient will be I with HEP and progression Goal Time Frame: 4-6 Weeks Goal 2:: Patient will demo full AROM of right shoulder when appropriate through protocol. Goal Time Frame: 8-12 Weeks Goal 3:: Patient will maintain proper posture t/o tx session to demo increase scap s/s Goal Time Frame: 8-12 Weeks Goal 4:: Patient will return to work without restrictions as appropriate and released by MD Goal Time Frame: 12-16 Weeks Goal 5:: Patient will report 80% improvement Goal Time Frame: 12-16 Weeks Rehabilitation Potential Physical Therapy Diagnosis: Patient presents with hypomobility- he has decreased UE ROM, scapular strength/stabilization, UE strength and muscular endurance s/p Right Shoulder Arthroscopic Debridement and Subacromial Decompression and arthroscopic biceps tenodesis on 03/13/2024 leading to poor posture and decreased ability to perform ADL's and work related tasks. Rehabilitation Potential: Good Anticipated Interventions Patient/Client Instruction: Educate patient on: Benefits of Fitness Program Therapeutic Exercise to Include: Strength training, Endurance training, Coordination, Body mechanics, Postural training, Flexibilty training, Neuromotor development, Passive ROM, Active ROM, Dynamic Lumbar Stabilization and Scapular Strength/Stabilization For the Purpose of:: To improve muscle performance and motor function Functional Training to Include: Functional work training For the Purpose of:: To improve ability to perform ADL's Manual Therapy Techniques to Include: Passive ROM and Soft tissue mobilization For the Purpose of:: To increase ROM TENS: Yes Cryotherapy (ice pack, ice massage): Yes Thermo therapy (hot pack): Yes Ultrasound (thermal/non thermal): Yes For the Purpose of:: To decrease pain Text: Thank you for the opportunity to evaluate your patient. For Medicare and Medicare HMO plans, please review the plan of care and approve it. It will need to be FAXED BACK to us at [phone] for Medicare purposes. For Medicare only, by signing this I certify the plan of care. Please let me know if there are questions or concerns regarding this plan of care. Physician Signature: Date:
--- NOTE | 2024-04-28 09:32 | HP.PTREVAL ---
Re-Evaluation Intro: Dr. Topher Mar MD, It has been my pleasure to treat ELLE VILLALPANDO over the last 10 visits for Right Shoulder Arthroscopic Debridement and Subacromial Decompression..... Please see the progress note below for an update on the physical therapy plan of care! Subjective Subjective: I am sore today. I might have over done it this weekend Objective Objective/Function: R shoulder pain 5/10 R shoulder ROM: flex= 135, abd= 80, ER= 0, IR= WNL R shoulder MMT: flex= 5, abd= 10, ER= 7, IR= 7 #F Pt is showing excellent improvement at this time. Pt is still limited with functional ROM and strength. Plan Plan Plan: 04/28/24- Continue with ROM activity, rotator cuff strengthening, and scap stab ex's at this time. Balance/Gait/Functional tests Balance/Special Test Scores Quick DASH Score: 47.7250 Goals Goals Goal 1:: Patient will be I with HEP and progression Goal Time Frame: 4-6 Weeks Goal Progress: Progressing Goal 2:: Patient will demo full AROM of right shoulder when appropriate through protocol. Goal Time Frame: 8-12 Weeks Goal Progress: Progressing Goal 3:: Patient will maintain proper posture t/o tx session to demo increase scap s/s Goal Time Frame: 8-12 Weeks Goal Progress: Progressing Goal 4:: Patient will return to work without restrictions as appropriate and released by MD Goal Time Frame: 12-16 Weeks Goal Progress: Progressing Goal 5:: Patient will report 80% improvement Goal Time Frame: 12-16 Weeks Goal Progress: Progressing Anticipated Interventions Anticipated Interventions Patient/Client Instruction: Educate patient on: Benefits of Fitness Program Therapeutic Exercise to Include: Strength training, Endurance training, Coordination, Body mechanics, Postural training, Flexibilty training, Neuromotor development, Passive ROM, Active ROM, Dynamic Lumbar Stabilization and Scapular Strength/Stabilization For the Purpose of:: To improve muscle performance and motor function Functional Training to Include: Functional work training For the Purpose of:: To improve ability to perform ADL's Manual Therapy Techniques to Include: Passive ROM and Soft tissue mobilization For the Purpose of:: To increase ROM TENS: Yes Cryotherapy (ice pack, ice massage): Yes Thermo therapy (hot pack): Yes Ultrasound (thermal/non thermal): Yes For the Purpose of:: To decrease pain Re-Evaluation Ending Re-evaluation ending: Please do not hesitate to contact me at [phone] by phone or if you have questions or concerns regarding this new plan of care! Sincerely, Rodolfo Prado, PT, ATC
--- NOTE | 2024-05-28 07:29 | HP.PTREVAL ---
Re-Evaluation Intro: Dr. Topher Mar MD, It has been my pleasure to treat ELLE VILLALPANDO over the last 18 visits for Right Shoulder Arthroscopic Debridement and Subacromial Decompression..... Please see the progress note below for an update on the physical therapy plan of care! Subjective Subjective: I am getting better. It doesnt hurt to put on my seatbelt anymore. Objective Objective/Function: R shoulder pain /, still increases to 3/10 R shoulder ROM: flex= 145, abd= 100, ER= 50, IR= WNL R shoulder MMT: flex= 11, abd= 19, ER= 18, IR= 16 #F Pt is progressing well at this time. Still limited with all work duties with RUE Plan Plan Plan: 05/28/24- Continue with ROM activity, rotator cuff strengthening, and scap stab ex's at this time. Balance/Gait/Functional tests Balance/Special Test Scores Quick DASH Score: 11.3625 Goals Goals Goal 1:: Patient will be I with HEP and progression Goal Time Frame: 4-6 Weeks Goal Progress: Progressing Goal 2:: Patient will demo full AROM of right shoulder when appropriate through protocol. Goal Time Frame: 8-12 Weeks Goal Progress: Progressing Goal 3:: Patient will maintain proper posture t/o tx session to demo increase scap s/s Goal Time Frame: 8-12 Weeks Goal Progress: Progressing Goal 4:: Patient will return to work without restrictions as appropriate and released by MD Goal Time Frame: 12-16 Weeks Goal Progress: Progressing Goal 5:: Patient will report 80% improvement Goal Time Frame: 12-16 Weeks Goal Progress: Progressing Anticipated Interventions Anticipated Interventions Patient/Client Instruction: Educate patient on: Benefits of Fitness Program Therapeutic Exercise to Include: Strength training, Endurance training, Coordination, Body mechanics, Postural training, Flexibilty training, Neuromotor development, Passive ROM, Active ROM, Dynamic Lumbar Stabilization and Scapular Strength/Stabilization For the Purpose of:: To improve muscle performance and motor function Functional Training to Include: Functional work training For the Purpose of:: To improve ability to perform ADL's Manual Therapy Techniques to Include: Passive ROM and Soft tissue mobilization For the Purpose of:: To increase ROM TENS: Yes Cryotherapy (ice pack, ice massage): Yes Thermo therapy (hot pack): Yes Ultrasound (thermal/non thermal): Yes For the Purpose of:: To decrease pain Re-Evaluation Ending Re-evaluation ending: Please do not hesitate to contact me at [phone] by phone or if you have questions or concerns regarding this new plan of care! Sincerely, Rodolfo Prado, PT, ATC
--- NOTE | 2024-06-25 07:27 | HP.PTREVAL_ITS ---
Re-Evaluation Intro: Dr. Topher Mar MD, It has been my pleasure to treat ELLE VILLALPANDO over the last 27 visits for Right Shoulder Arthroscopic Debridement and Subacromial Decompression..... Please see the progress note below for an update on the physical therapy plan of care! Subjective Subjective: I dont have any pain if I dont use my arm. If I lift it out to the side, it is sore. Objective Objective/Function: R shoulder pain ranges from 0-4/10 R shoulder ROM: flex= 150, abd= 115, IR= WNL compared bilaterally, ER= 20 degrees R shoulder MMT: flex= 5, abd= 13, IR= 6, ER= 16 #F Pt is still showing improvements with ROM and pain, but continues to lack functional strength for RTW Plan Plan Plan: 06/25/24- Continue with focus on strengthening rotator cuff and scap stab ex's at this time. Balance/Gait/Functional tests Balance/Special Test Scores Quick DASH Score: 22.7250 Goals Goals Goal 1:: Patient will be I with HEP and progression Goal Time Frame: 4-6 Weeks Goal Progress: Progressing Goal 2:: Patient will demo full AROM of right shoulder when appropriate through protocol. Goal Time Frame: 8-12 Weeks Goal Progress: Progressing Goal 3:: Patient will maintain proper posture t/o tx session to demo increase scap s/s Goal Time Frame: 8-12 Weeks Goal Progress: Progressing Goal 4:: Patient will return to work without restrictions as appropriate and re leased by MD Goal Time Frame: 12-16 Weeks Goal Progress: Progressing Goal 5:: Patient will report 80% improvement Goal Time Frame: 12-16 Weeks Goal Progress: Progressing Anticipated Interventions Anticipated Interventions Patient/Client Instruction: Educate patient on: Benefits of Fitness Program Therapeutic Exercise to Include: Strength training, Endurance training, Coordination, Body mechanics, Postural training, Flexibilty training, Neuromotor development, Passive ROM, Active ROM, Dynamic Lumbar Stabilization and Scapular Strength/Stabilization For the Purpose of:: To improve muscle performance and motor function Functional Training to Include: Functional work training For the Purpose of:: To improve ability to perform ADL's Manual Therapy Techniques to Include: Passive ROM and Soft tissue mobilization For the Purpose of:: To increase ROM TENS: Yes Cryotherapy (ice pack, ice massage): Yes Thermo therapy (hot pack): Yes Ultrasound (thermal/non thermal): Yes For the Purpose of:: To decrease pain Re-Evaluation Ending Re-evaluation ending: Please do not hesitate to contact me at [phone] by phone or if you have questions or concerns regarding this new plan of care! Sincerely, Rodolfo Prado, PT, ATC
--- NOTE | 2024-08-01 07:22 | HP.PTDCSUM ---
Discharge Summary D/C summary: It has been my pleasure to treat ELLE VILLALPANDO referred by Dr. Topher Mar MD, with the diagnosis of Right Shoulder Arthroscopic Debridement and Subacromial Decompression.... for a total of 36 visit(s). Discharge Date: Please see the following information for a summary of their discharge status. Subjective Subjective: Pt reports no pain today. Pt feels ready for discharge. Pain R SH: Pain Intensity (Out of 10): 0 Overall Improvement % Improvement: 90 Objective Objective/Function: R shoulder pain is 0/10 R shoulder ROM: flex= 150, abd= 135, IR= WNL, ER= 60 degrees R shoulder MMT: flex= 12, abd= 21, IR= 15, ER= 15 #F Pt is I with HEP Goals Goal 1:: Patient will be I with HEP and progression Goal Progress: Goal Met Goal 2:: Patient will demo full AROM of right shoulder when appropriate through protocol. Goal Progress: Goal Met Goal 3:: Patient will maintain proper posture t/o tx session to demo increase scap s/s Goal Progress: Goal Met Goal 4:: Patient will return to work without restrictions as appropriate and released by MD Goal Progress: Goal Met Goal 5:: Patient will report 80% improvement Goal Progress: Goal Met Plan Plan: Discharge to HEP D/C Information d/c sentence: If there are questions or concerns regarding this patient's physical therapy, please feel free to call me at [phone]. Thank you for the referral of this patient. Sincerely, Rodolfo Prado, PT, ATC Balance/Gait/Functional tests Balance/Special Test Scores Quick DASH Score: 11.3625 Improvement % Improvement: 90
== END 2024-08-01 19:00 | disposition home or self-care (01) ==
LOC: PT 07:00
PROVIDERS: PCP Family Medicine; Referring Provider Orthopaedic Surgery Hand Surgery; Visit Provider Orthopaedic Surgery Hand Surgery
DX: M75.41 Impingement syndrome of right shoulder (principal)
CPT/HCPCS: 97110; 97140; 97162; 97530